=== PATIENT | female | born 1975 | race Caucasian/White ===

== ENCOUNTER 2017-11-21 00:21 | Emergency (ER) | payer OTHER ==
[2017-11-21] MEDS ORDERED: Ketorolac Tromethamine 30 MG/ML VIAL ONE (01:05)
[2017-11-21 01:12] LABS: BHCG - Serum Negative (NEGATIVE); Pregs Control Background? CLEAR/WHITE (CLR/WHITE); Pregs Control Bar Appear? YES (CONTROL BAR)
== END 2017-11-21 01:20 | disposition home or self-care (01) ==
LOC: SCSER 00:21
DX: M79.604 Pain in right leg (principal); E03.9 Hypothyroidism, unspecified; F41.9 Anxiety disorder, unspecified; I48.91 Unspecified atrial fibrillation; K21.9 Gastro-esophageal reflux disease without esophagitis; J45.909 Unspecified asthma, uncomplicated
CPT/HCPCS: 84703; 85379; 99283; J1885

== ENCOUNTER 2018-03-21 14:13 | Outpatient (CLI) | payer OTHER ==
--- NOTE | 2018-03-21 15:56 | RAD ---
CHEST PA AND LATERAL: History: 42-year-old female with history of cough for two months, bronchitis. Comparison: 07-03-15 FINDINGS: Heart size is normal. The lungs are clear. IMPRESSION: No acute intrathoracic disease. Stable from prior study. POS: [facility]
== END 2018-03-21 14:14 | disposition home or self-care (01) ==
LOC: SCSRAD 14:13
PROVIDERS: ATTEND Nurse Practitioner Family
DX: J40 Bronchitis, not specified as acute or chronic (principal)
CPT/HCPCS: 71046

== ENCOUNTER 2018-06-13 15:15 | Outpatient (CLI) | payer OTHER ==
--- NOTE | 2018-06-13 15:45 | RAD ---
TWO VIEWS LEFT FOOT: Comparison: None. History: Heel pain. Foot pain. FINDINGS: Three views of the left foot shows no evidence of acute fracture or dislocation. Mild soft tissue swe lling is seen. No degenerative changes are present. IMPRESSION: No evidence of acute osseous abnormality. POS: [facility]
== END 2018-06-13 15:16 | disposition home or self-care (01) ==
LOC: SCSRAD 15:15
PROVIDERS: ATTEND Nurse Practitioner Family
DX: M79.672 Pain in left foot (principal)

== ENCOUNTER 2018-08-31 13:10 | Outpatient (CLI) | payer OTHER ==
--- NOTE | 2018-08-31 13:40 | RAD ---
FXR Cervical Sp Com W/Obl Fl/Ex 7 views History:Neck pain and bilateral arm weakness. Comparison: None Findings: The vertebral bodies are normal in height. Minimal disc narrowing and osteophytic changes a re seen at C6-7. No abnormal motion in flexion or extension views. No foraminal narrowing is apprecia louie. Impression: Minimal arthritic changes of the spine.
== END 2018-08-31 13:11 | disposition home or self-care (01) ==
LOC: SCSRAD 13:10
PROVIDERS: ATTEND Chiropractor
DX: M47.22 Other spondylosis with radiculopathy, cervical region (principal); M54.2 Cervicalgia
CPT/HCPCS: 72052

== ENCOUNTER 2018-09-18 16:46 | Outpatient (CLI) | payer OTHER ==
--- NOTE | 2018-09-18 17:25 | RAD ---
Right hand 3 views: 09/18/2018 COMPARISON: None HISTORY: Pain, numbness, swelling FINDINGS: No acute fracture or evidence of dislocation. No significant joint space narrowing or osteo phyte formation. No periarticular osteopenia or erosive change. IMPRESSION: No acute findings.
[2018-09-18 18:01] LABS: CRP (Inflammatory) 0.56 mg/dL (= or < 0.5)
[2018-09-19 00:02] LABS: Complement-C4 21.4 mg/dL (15-57)
[2018-09-19 00:39] LABS: HBCM Index 0.08 S/CO (0-0.79); HBSAg Index 0.37 S/CO (0-0.99); Hep A IgM AB Non-Reactive (NonReactive); Hep A IgM S/CO 0.11 S/CO (0-0.79); Hep B Surf Ag Non-Reactive S/CO (NonReactive); Hep C IgG Ab Non-Reactive (NonReactive); Hep C Index 0.13 S/CO (0-0.79); Hepatitis B Core IgM Abs Non-Reactive (NonReactive)
[2018-09-19 16:05] LABS: ANA Symphony (Qualitative) Negative (Negative); ANA Symphony (Quantitative) 0.4 Ratio (< 0.7 Negative); CCP IgG Antibody 0.9 EliAU/mL (<7 Negative); EliA RAS New Method **** NEW METHOD ****; Rheumatoid Factor IgA Antibody 2.8 IU/mL (<14 Negative); Rheumatoid Factor IgM Antibody 0.8 IU/mL (<3.5 Negative); dsDNA IgG Antibody 1.7 IU/mL (<10 Negative)
[2018-09-21 10:15] LABS: Lyme IgG/IgM AB <0.91 ISR (0.00-0.90)
== END 2018-09-18 16:47 | disposition home or self-care (01) ==
LOC: SCSRAD 16:46
DX: M25.50 Pain in unspecified joint (principal); R76.8 Other specified abnormal immunological findings in serum
CPT/HCPCS: 36415; 80074; 83520; 85652; 86038; 86140; 86160; 86200; 86225; 86618